=== PATIENT | male | born 1955 | race Caucasian/White ===

== ENCOUNTER 2023-03-31 14:01 | Outpatient (CLI) | payer MEDICARE, BC ==
[~2023-03-31 14:01] MED LIST: Magnevist 469MG/ML 20 ML VIAL ONE
== END 2023-03-31 14:02 | disposition home or self-care (01) ==
LOC: CSHMRI 14:01
PROVIDERS: ATTEND Urology
DX: C61 Malignant neoplasm of prostate (principal)
CPT/HCPCS: 72197; 82565

== ENCOUNTER 2024-08-19 08:18 | Outpatient (CLI) | payer MEDICARE, BC ==
[2024-08-19] MEDS ORDERED: Magnevist 469MG/ML 20 ML VIAL ONE (10:34)
== END 2024-08-19 08:19 | disposition home or self-care (01) ==
LOC: CSHMRI 08:18
PROVIDERS: ATTEND Urology
DX: C61 Malignant neoplasm of prostate (principal); R97.20 Elevated prostate specific antigen [PSA]; R35.0 Frequency of micturition
CPT/HCPCS: 36415; 72197; 82565